=== PATIENT | male | born 1960 | race Caucasian/White ===

== ENCOUNTER 2018-05-26 08:36 | Emergency (ER) | payer MEDICARE ==
[~2018-05-26] VITALS: Ht 177.8 cm; Wt 105.5 kg
[~2018-05-26 08:36] MED LIST: CLINDAMYCIN300 MG PO; FISH OIL500 MG PO; LINSEED OIL 1 ML1 ML; MULTIPLE VITAMI1 CAP PO; NORCO 325 MG-51 TAB PO; RISPERDAL 2M2 MG/TAB PO; TRICOR48 MG PO; ZYPREXA10 MG PO
[2018-05-26 08:46] VITALS: BP 150/75; PULSE 63; TEMP 98
== END 2018-05-26 09:53 | disposition home or self-care (01) ==
LOC: COL.ER 08:36
DX: S69.91XA Unspecified injury of right wrist, hand and finger(s), initial encounter (principal); F20.9 Schizophrenia, unspecified; Y92.89 Other specified places as the place of occurrence of the external cause
CPT/HCPCS: Q4021

== ENCOUNTER 2018-06-27 11:04 | Outpatient (RCR) | payer OTHER | END 2018-09-18 | disposition home or self-care (01) | LOC: WSOH | DX: M25.561 Pain in right knee (principal); W10.8XXA Fall (on) (from) other stairs and steps, initial encounter; Y92.219 Unspecified school as the place of occurrence of the external cause; Y99.0 Civilian activity done for income or pay; Z79.899 Other long term (current) drug therapy ==

== ENCOUNTER 2021-04-16 03:29 | Emergency (ER) | payer MEDICARE ==
[~2021-04-16] VITALS: Ht 175.3 cm; Wt 95.5 kg
[2021-04-16 03:57] LABS: BASO # 0.1 (0.0-0.2); BASO % 0.9 % (0.0-2.0); EOS # 0.2 (0.0-0.7); EOS % 3.9 % (0-4.0); GRAN # 1.9 (1.4-6.5); GRAN % 34.1 % (42.2-75.2); HEMOGLOBIN 12.2 g/dl (13.5-18.0); LYMPH # 2.9 (1.2-3.4); MEAN CELL VOLUME 90 fl (80.0-100.0); MEAN CORPUSCULAR HEMOGLOBIN 30 pg (27.0-31.0); MEAN CORPUSCULAR HGB CONC 33 g/dl (33.0-37.0); MEAN PLATELET VOLUME 8.6 fl (7.4-10.4); MONO # 0.6 (0.1-0.6); MONO % 9.9 % (1.7-9.3); PLATELET COUNT 250 K/mm3 (130-400); RED BLOOD COUNT 4.06 M/mm3 (4.20-5.60); REDCELL DISTRIBUTION WIDTH-CV 13.2 % (11.5-14.5)
[2021-04-16 04:12] LABS: HEMATOCRIT 36.6 % (42.0-52.0)
[2021-04-16 04:22] LABS: ALANINE AMINOTRANSFERASE 25 U/L (4-49); ALKALINE PHOSPHATASE 50 U/L (50-136); ANION GAP 3 mmol/L (7-16); AST,SGOT 24 U/L (15-37); BILIRUBIN,TOTAL 0.4 mg/dL (0.0-1.0); BLOOD UREA NITROGEN 17 mg/dL (9-20); CALCIUM 9.3 mg/dL (8.4-10.2); CARBON DIOXIDE 26 mmol/L (22-30); CHLORIDE 108 mmol/L (98-107); CREATININE, serum 0.96 (0.66-1.25); GLUCOSE 102 mg/dL (74-106); POTASSIUM 3.8 mmol/L (3.4-5.0); SODIUM 137 mmol/L (137-145)
[2021-04-16 05:10] LABS: TROPONIN-I < 0.012 ng/mL (0.000-0.035)
[2021-04-16 05:23] VITALS: BP 134/79; PULSE 71; TEMP 97.5
== END 2021-04-16 05:23 | disposition home or self-care (01) ==
LOC: COL.ER 03:29
PROVIDERS: Emergency Medicine
DX: R06.02 Shortness of breath (principal); E78.00 Pure hypercholesterolemia, unspecified; F20.9 Schizophrenia, unspecified; Z77.22 Contact with and (suspected) exposure to environmental tobacco smoke (acute) (chronic); Z79.899 Other long term (current) drug therapy

== ENCOUNTER → 2022-01-07 | Outpatient (CLI) | payer MEDICARE, MEDICAID | LOC: COL.VAS 13:15 | DX: I07.1 Rheumatic tricuspid insufficiency (principal) ==